=== PATIENT | female | born 1965 | race Two or more races ===

== ENCOUNTER 2018-03-18 12:18 | Day surgery (SDC) | payer OTHER ==
[2018-03-18] MEDS ORDERED: PROPOFOL 60 ML (13:27)
[2018-03-18] MEDS ORDERED: FAMOTIDINE 20 MG INJ (14:05)
[2018-03-18] MEDS ORDERED: FENTAnyl 50 MCG/ML VIAL (14:07)
[2018-03-18] MEDS ORDERED: MIDAZOLAM 1 MG/ML 2 ML INJ (14:12)
[2018-03-18] MEDS ORDERED: ONDANSETRON 4 MG INJ (14:12)
[2018-03-18] MEDS ORDERED: HYOSCYAMINE 0.125 MG SUBL TAB SL ×2 (15:00→15:30)
== END 2018-03-18 16:46 | disposition home or self-care (01) ==
LOC: GIL 12:18
DX: R19.4 Change in bowel habit (principal); D12.2 Benign neoplasm of ascending colon; D12.5 Benign neoplasm of sigmoid colon; K64.8 Other hemorrhoids; K29.70 Gastritis, unspecified, without bleeding; E03.9 Hypothyroidism, unspecified; E66.9 Obesity, unspecified; Z68.34 Body mass index [BMI] 34.0-34.9, adult
CPT/HCPCS: 43239; 88305; 88312; 88313

== ENCOUNTER 2018-11-20 08:01 | Day surgery (SDC) | payer OTHER ==
[~2018-11-20 08:01] MED LIST: CEFAZOLIN 2 GM/50 ML (PMX) 50 ML IVPB; PROPOFOL 200 MG INJ
[2018-11-20] MEDS: ACETAMINOPHEN 500 MG TAB PO (09:01)
[2018-11-20] MEDS: SOD CHLORIDE 0.9% 1,000 ML IV (09:02)
[2018-11-20] MEDS ORDERED: CLINDAMYCIN 900 MG/D5W (PMX) 50 ML IVPB (09:40)
[2018-11-20] MEDS ORDERED: LIDOCAINE 2% (SDV) 5 ML INJ (09:40)
[2018-11-20] MEDS ORDERED: ONDANSETRON 4 MG INJ (09:40)
[2018-11-20] MEDS ORDERED: SUGAMMADEX SODIUM 200 MG/2 ML VIAL IV (09:40)
[2018-11-20] MEDS ORDERED: FAMOTIDINE 20 MG INJ (09:40)
[2018-11-20] MEDS ORDERED: MIDAZOLAM 1 MG/ML 2 ML INJ (09:40)
[2018-11-20] MEDS ORDERED: FENTAnyl 50 MCG/ML VIAL (09:40)
[2018-11-20] MEDS ORDERED: ROCURONIUM 50 MG INJ (09:40)
[2018-11-20] MEDS ORDERED: OXYCODONE/ACETAMINOPHEN (5/325) TAB PO ×2 (10:30)
[2018-11-20] MEDS ORDERED: morphine (1 MG/ML) 10ML SYRINGE IV ×2 (10:30)
[2018-11-20] MEDS ORDERED: DIPHENHYDRAMINE 50 MG INJ IV (10:30)
[2018-11-20] MEDS ORDERED: MEPERIDINE 25 MG INJ IV (10:30)
[2018-11-20] MEDS ORDERED: HYDROmorphONE 1 MG/5 ML IV SYRINGE IV (10:30)
[2018-11-20] MEDS ORDERED: ALBUTEROL 0.083% (NEB) 2.5 MG/3 ML AMP HHN (10:30)
[2018-11-20] MEDS ORDERED: LABETALOL HCL 20MG INJ IV (10:30)
[2018-11-20] MEDS ORDERED: FENTAnyl 50 MCG/ML VIAL IV ×2 (10:30)
[2018-11-20] MEDS ORDERED: PHENYLephrine (100 MCG/ML) 10ML SYG (10:50)
[2018-11-20] MEDS: BUPIVACAINE 0.5%/EPI (SDV) 30 ML INJ (10:52)
[2018-11-20] MEDS: HYDROmorphONE 1 MG/5 ML IV SYRINGE IV ×2 (11:30→11:57)
[2018-11-20] MEDS: ONDANSETRON 4 MG INJ IV (14:42)
== END 2018-11-20 15:06 | disposition home or self-care (01) ==
LOC: SDS 08:01
DX: L91.8 Other hypertrophic disorders of the skin (principal); L98.9 Disorder of the skin and subcutaneous tissue, unspecified
CPT/HCPCS: 11200; 87070; 87075; 87102; 87116; 88304